=== PATIENT | female | born 1950 | race Caucasian/White ===

== ENCOUNTER 2017-05-23 12:45 | Emergency (ER) | payer MEDICARE ==
[~2017-05-23] VITALS: Ht 157.5 cm; Wt 47.0 kg
[~2017-05-23 12:45] MED LIST: ACLI1AER2 IN; SYMB160A INH
[2017-05-23 12:46] VITALS: BP 142/73; PULSE 91; RESP 18; TEMP 97.6; O2SAT 95
[2017-05-23] MEDS ORDERED: SODIUM CHLOR 0.9% 1000 ML INJ 1,000 ML IV ONE (14:00)
[2017-05-23 14:29] LABS: AUTOMATED NEUTROPHIL # 5.3 TH/MM3 (1.8-7.7); BASOPHIL % 0.5 % (0.0-2.0); EOSINOPHIL # 0.1 TH/MM3 (0-0.4); EOSINOPHIL % 0.9 % (0.0-4.0); HEMO FLAGS DIFF FINAL; LYMPH % 19.5 % (9.0-44.0); LYMPHOCYTE # 1.4 TH/MM3 (1.0-4.8); MEAN CELL VOLUME 92.6 FL (80.0-100.0); MEAN CORPUSCULAR HEMOGLOBIN 31.8 PG (27.0-34.0); MEAN CORPUSCULAR HGB CONC 34.3 % (32.0-36.0); MONO % 8.1 % (0.0-8.0); PLATELET COUNT 292 TH/MM3 (150-450); RED BLOOD COUNT 4.21 MIL/MM3 (4.00-5.30); RED CELL DISTRIBUTION WIDTH 13.2 % (11.6-17.2); WHITE BLOOD COUNT 7.4 TH/MM3 (4.0-11.0)
[2017-05-23 14:45] LABS: ALT (GPT) 12 U/L (10-53); ANION GAP 4 MEQ/L (5-15); AST (GOT) 6 U/L (15-37); BICARBONATE 30.6 MEQ/L (21.0-32.0); BLOOD UREA NITROGEN 14 MG/DL (7-18); CHLORIDE 108 MEQ/L (98-107); GLOMERULAR FILTRATION RATE 72 ML/MIN (>89); POTASSIUM 3.9 MEQ/L (3.5-5.1); SODIUM (NA) 143 MEQ/L (136-145)
[2017-05-23 14:46] LABS: ALKALINE PHOSPHATASE 66 U/L (45-117); TOTAL BILIRUBIN ADULT 0.3 MG/DL (0.2-1.0)
[2017-05-23] MEDS ORDERED: AZIT250T3 PO (14:57)
[2017-05-23] MEDS ORDERED: PRED20 PO (14:57)
--- NOTE | 2017-05-23 14:57 | PD ---
HPI Chief Complaint: Cold / Flu Symptoms Time Seen by Provider: 13:49 Travel History International Travel<30 days: No Contact w/Intl Traveler<30days: No Traveled to known affect area: No History of Present Illness HPI This is a 67-year-old female who presents to the emergency department with cold symptoms that have been going on for 10 days, constant, moderate severity associated with generalized malaise, productive cough with some clear sputum and loose stools. She denies any fevers. She does have a history of COPD for which she uses albuterol. PFSH Past Medical History High Cholesterol: Yes COPD: Yes Respiratory: Yes Past Surgical History Hysterectomy: Yes Tonsillectomy: Yes Social History Alcohol Use: Yes (OCC) Tobacco Use: Yes (06/24 PPD) Substance Use: No Allergies-Medications (Allergen,Severity, Reaction): Coded Allergies: No Known Allergies (Unverified Adverse Reaction, Unknown, 05/23/17) Reported Meds & Prescriptions Reported Meds & Active Scripts Active Reported Symbicort (Budesonide/Formoterol Fumarate) 160 Mcg/4.5 Mcg Aer 1 Puff INH BID * SHAKE WELL BEFORE USE * Tudorza Pressair (Aclidinium [place]) 400 Mg/Act Aer 400 Mg IN BID Review of Systems Except as stated in HPI: all other systems reviewed are Neg Physical Exam Narrative GENERAL:Well appearing, no acute distress SKIN: Focused skin assessment warm and dry. HEAD: Atraumatic. Normocephalic. EYES: Pupils equal and round. No injection or drainage. ENT: Dry mucous membranes NECK: Trachea midline. CARDIOVASCULAR: Regular rate and rhythm. No murmur appreciated. RESPIRATORY: Poor air movement, no focal Rales or rhonchi GASTROINTESTINAL: Abdomen soft, non-tender, nondistended. MUSCULOSKELETAL: No obvious deformities. NEUROLOGICAL: Awake and alert. No obvious cranial nerve deficits. Moving all extremities. PSYCHIATRIC: Appropriate mood and affect; insight and judgment normal. Data Data Last Documented VS Vital Signs Date Time Temp Pulse Resp B/P (MAP) Pulse Ox O2 Delivery O2 Flow Rate FiO2 05/23/17 13:52 63 16 96 Room Air 05/23/17 12:46 97.6 142/73 (96) Orders Orders Complete Blood Count With Diff (05/23/17 13:56) Comprehensive Metabolic Panel (05/23/17 13:56) ^ Insert Iv (05/23/17 13:56) Sodium Chlor 0.9% 1000 Ml Inj (Ns 1000 M (05/23/17 14:00) Labs Laboratory Tests Test 05/23/17 14:05 White Blood Count 7.4 TH/MM3 Red Blood Count 4.21 MIL/MM3 Hemoglobin 13.4 GM/DL Hematocrit 39.0 % Mean Corpuscular Volume 92.6 FL Mean Corpuscular Hemoglobin 31.8 PG Mean Corpuscular Hemoglobin Concent 34.3 % Red Cell Distribution Width 13.2 % Platelet Count 292 TH/MM3 Mean Platelet Volume 7.8 FL Neutrophils (%) (Auto) 71.0 % Lymphocytes (%) (Auto) 19.5 % Monocytes (%) (Auto) 8.1 % Eosinophils (%) (Auto) 0.9 % Basophils (%) (Auto) 0.5 % Neutrophils # (Auto) 5.3 TH/MM3 Lymphocytes # (Auto) 1.4 TH/MM3 Monocytes # (Auto) 0.6 TH/MM3 Eosinophils # (Auto) 0.1 TH/MM3 Basophils # (Auto) 0.0 TH/MM3 CBC Comment DIFF FINAL Differential Comment Blood Urea Nitrogen 14 MG/DL Creatinine 0.79 MG/DL Random Glucose 106 MG/DL Total Protein 6.9 GM/DL Albumin 3.4 GM/DL Calcium Level 8.7 MG/DL Alkaline Phosphatase 66 U/L Aspartate Amino Transf (AST/SGOT) 6 U/L Alanine Aminotransferase (ALT/SGPT) 12 U/L Total Bilirubin 0.3 MG/DL Sodium Level 143 MEQ/L Potassium Level 3.9 MEQ/L Chloride Level 108 MEQ/L Carbon Dioxide Level 30.6 MEQ/L Anion Gap 4 MEQ/L Estimat Glomerular Filtration Rate 72 ML/MIN [facility] Medical Decision Making Medical Screen Exam Complete: Yes Emergency Medical Condition: Yes Differential Diagnosis Viral syndrome, pneumonia, bronchitis, dehydration, electrolyte abnormality Narrative Course This is a 67-year-old female who presents to the emergency department with cough and cold symptoms that have been going on for 10 days. She feels like she is just not getting any better and she feels very malaise. Labs are obtained which are reassuring and she was given a liter of IV hydration. I suspect she has a viral syndrome. Given her underlying history of COPD I think it's reasonable to start her on prednisone and azithromycin. Electrolytes are reassuring. I think patient is safe to be discharged given her reassuring vital signs. Diagnosis Primary Impression: Bronchitis Patient Instructions: General Instructions Additional Instructions: If you develop severe shortness of breath, chest pain, or difficulty breathing return to the emergency department. Use albuterol every 4 hours for the next 2 days. Then use as needed for wheezing. Complete your course of steroids. Complete your course of antibiotics. Follow up with your primary care physician in 2-3 days if your symptoms have not improved. Med/Other Pt SpecificInfo: Prescription(s) given Scripts Azithromycin (Azithromycin) 250 Mg Tab 250 MG PO DIRECTED for Infection, #6 TAB 0 Refills Take 2 tabs (500 mg) on day 1 then 1 tab daily x 4 days. Prov: Sheryl Garcia MD 05/23/17 Prednisone (Prednisone) 20 Mg Tab 40 MG PO DAILY, #10 TAB 0 Refills Take 40 mg (2 tablets) daily for 5 days Prov: Sheryl Garcia MD 05/23/17 Disposition: 01 DISCHARGE HOME Condition: Stable Sheryl Garcia MD May 23, 2017 14:57
== END 2017-05-23 15:41 | disposition home or self-care (01) ==
LOC: NEPC 12:45
DX: J40 Bronchitis, not specified as acute or chronic (principal); J44.9 Chronic obstructive pulmonary disease, unspecified; E78.00 Pure hypercholesterolemia, unspecified; F17.200 Nicotine dependence, unspecified, uncomplicated; Z79.899 Other long term (current) drug therapy
CPT/HCPCS: 80053; 85025; 99284; J7030

== ENCOUNTER 2017-07-08 14:51 | Emergency (ER) | payer MEDICAID, MEDICARE ==
[~2017-07-08] VITALS: Ht 157.5 cm; Wt 47.7 kg
[~2017-07-08 14:51] MED LIST changes: +AZIT250T3 PO; +PRED20 PO
[2017-07-08 14:57] VITALS: BP 178/78; PULSE 69; RESP 18; TEMP 98.6; O2SAT 97
[2017-07-08] MEDS ORDERED: ACETAMINOPHEN/HYDROcodone 325 MG/5 MG TAB PO ONE (15:45)
[2017-07-08] MEDS ORDERED: LIDOCAINE HCL 1% 30 ML VIAL INFIL ONE (15:45)
[2017-07-08] MEDS ORDERED: GELATIN 12 MM/7 MM FOAM TOPICAL ONE (16:00)
[2017-07-08] MEDS ORDERED: LIDOCAINE HCL 1% PF 30 ML VIAL INFIL ONE (16:00)
--- NOTE | 2017-07-08 16:05 | RADRPT ---
EXAM DATE/TIME: 07/08/2017 15:51 [place] COMPARISON: No previous studies available for comparison. INDICATIONS : Right 3rd finger pain and laceration, iguana bite MEDICAL HISTORY : None. SURGICAL HISTORY : Hysterectomy. ENCOUNTER: Initial ACUITY: 1 day PAIN SCORE: 10/10 LOCATION: Right 3rd finger FINDINGS: The examination demonstrates a large soft tissue defect involving the distal aspect of the third digi t. There is no bony abnormality. There is no retained foreign body. CONCLUSION: 1. Sizable soft tissue defect. No retained foreign body. No acute bony injury. Santy Pike MD on July 08, 2017 at 15:59 Board Certified Radiologist. This report was verified electronically.
[2017-07-08] MEDS ORDERED: AUGM875T3 PO (16:32)
[2017-07-08] MEDS ORDERED: IBUP1TAB7 PO (16:32)
[2017-07-08] MEDS ORDERED: NORC5TAB PO (16:32)
--- NOTE | 2017-07-08 16:34 | PD ---
HPI Chief Complaint: Bite or Sting Time Seen by Provider: 15:33 Travel History International Travel<30 days: No Contact w/Intl Traveler<30days: No Traveled to known affect area: No History of Present Illness HPI 67-year-old female presents to the emergency Department with complaint of her Iguana biting the tip of her right third finger off today. Up-to-date on tetanus vaccination. Denies paresthesias, loss of sensation, decreased range of motion, decreased strength to the affected finger. Has not taken any medication to alleviate her symptoms. Denies anticoagulant therapy. Has applied pressure to control bleeding. Rates pain /10. Describes it as a throbbing sensation. History of hypercholesterolemia. Has an established primary care provider. No known allergies. Has no other medical complaints. No other modifying factors or associated signs and symptoms. PFSH Past Medical History High Cholesterol: Yes COPD: Yes Respiratory: Yes Past Surgical History Hysterectomy: Yes Tonsillectomy: Yes Social History Alcohol Use: Yes (OCC) Tobacco Use: Yes (06/24 PPD) Substance Use: No Allergies-Medications (Allergen,Severity, Reaction): Coded Allergies: No Known Allergies (Unverified Adverse Reaction, Unknown, 05/23/17) Reported Meds & Prescriptions Reported Meds & Active Scripts Active Bactrim DS (Sulfamethoxazole-Trimethoprim) 800-160 Mg Tab 1 Tab PO BID 10 Days Augmentin (Amoxicillin-Clavulanate) 875-125 Mg Tab 1 Tab PO BID 14 Days Ibuprofen 800 Mg Tab 800 Mg PO Q8H PRN [place] (Hydrocodone-Acetaminophen) 5 Mg-325 Mg Tab 1 Tab PO Q4H PRN Azithromycin 250 Mg Tab 250 Mg PO DIRECTED Take 2 tabs (500 mg) on day 1 then 1 tab daily x 4 days. Prednisone 20 Mg Tab 40 Mg PO DAILY Take 40 mg (2 tablets) daily for 5 days Reported Symbicort (Budesonide/Formoterol Fumarate) 160 Mcg/4.5 Mcg Aer 1 Puff INH BID * SHAKE WELL BEFORE USE * Tudorza Pressair (Aclidinium [place]) 400 Mg/Act Aer 400 Mg IN BID Review of Systems Except as stated in HPI: all other systems reviewed are Neg Physical Exam Narrative GENERAL: Well-nourished, well-developed female patient, in no acute distress SKIN: Warm and dry. Distal aspect of right third finger with skin avulsion; minimal amount of bright red drainage; bleeding controlled; sensory intact; fingers with full range of motion and good opposition; without erythema, edema, ecchymosis. HEAD: Atraumatic. Normocephalic. EYES: Pupils equal and round. No scleral icterus. No injection or drainage. ENT: Mucosa pink and moist. Airway patent. NECK: Trachea midline. CARDIOVASCULAR: Regular rate. RESPIRATORY: No accessory muscle use. GASTROINTESTINAL: Flat. MUSCULOSKELETAL: No obvious deformities. No clubbing. No cyanosis. No edema. NEUROLOGICAL: Awake and alert. Oriented 3. No obvious cranial nerve deficits. Motor grossly within normal limits. Normal speech. PSYCHIATRIC: Appropriate mood and affect; insight and judgment normal. Data Data Last Documented VS Vital Signs Date Time Temp Pulse Resp B/P (MAP) Pulse Ox O2 Delivery O2 Flow Rate FiO2 07/08/17 14:57 98.6 69 18 178/78 (111) 97 Room Air Orders Orders Finger ([id number]) (07/08/17 ) Acetamin-Hydrocod 325-5 Mg ([place] 5-325 (07/08/17 15:45) Lidocaine 1% Inj (Xylocaine 1% Inj) (07/08/17 15:45) Lidocaine Pf 1% Inj (Xylocaine-Mpf 1% In (07/08/17 16:00) Gelatin 12 Mm/7 Mm Top (Gelfoam 12 Mm/7 (07/08/17 16:00) Amoxicil-Clavulanate (Augmentin) (07/08/17 16:45) Splint Or Brace Apply/Monitor (07/08/17 16:34) Ed Discharge Order (07/08/17 16:53) Sulfamet-Trimeth Ds 800-160 Mg (Bactrim (07/08/17 17:00) Finger Splint (07/08/17 ) MDM Medical Decision Making Medical Screen Exam Complete: Yes Emergency Medical Condition: Yes Medical Record Reviewed: Yes Differential Diagnosis Skin avulsion, amputation, laceration, reptile bite Narrative Course 67-year-old female that was bit by her Iguana leaving a skin avulsion to the distal aspect of the right third finger with nailbed involvement. Patient up-to -date on tetanus vaccination. Right third finger x-ray ordered. [place] and Augmentin ordered. See my procedure note for skin avulsion repair. 1629: Right hand third finger x-ray concludes: Finger X-Ray 07/08/17 0000 Signed Impressions: Service Date/Time: June 15:51 - CONCLUSION: 1. Sizable soft tissue defect. No retained foreign body. No acute bony injury. Santy Pike MD X-ray findings discussed with the patient. [place], Augmentin, Bactrim, ibuprofen prescribed for home. Instructed patient to follow up with hand surgeon; patient is currently seeing a hand surgeon secondary to a previous bite from her iguana to her right fifth finger and she has a scheduled appointment in 2 weeks. Instructed patient to call and make an earlier appointment. Instructed patient to follow up with primary care provider. Patient verbalizes understanding and agreement with treatment plan. Patient is medically cleared and stable for discharge. Discussed reasons to return to the emergency department. Patient agrees with treatment plan. The patients vital signs are stable and the patient is stable for outpatient follow-up and treatment. Patient discharged home, stable and in no acute distress. Procedures Procedure Narrative REPAIR of skin avulsion: The right third finger was digitally blocked with 1% lidocaine. The area of the laceration was prepped with Betadine and sterilely draped. The wound was copiously irrigated and explored without evidence of foreign body, tendon injury or neurovascular injury. The wound was closed using a cautery pen and gel hemostatic. A sterile dressing was applied. The patient was advised to keep the dressing clean and dry. Patient tolerated the procedure well. Diagnosis Primary Impression: Reptile bite Qualified Codes: W59.81XA - Bitten by other nonvenomous reptiles, initial encounter Additional Impression: Avulsion of skin of finger Qualified Codes: S61.209A - Unspecified open wound of unspecified finger without damage to nail, initial encounter Referrals: Hand Surgeon Primary Care Physician Patient Instructions: Acute Wound Care (DC), Animal Bite (ED), General Instructions, Skin Avulsion (ED) Additional Instructions: Do not change the dressing for 48 hours After 48 hours keep the area clean and dry Apply triple antibiotic ointment as directed and as needed for wound care Keep area covered with bandage Finger splint as needed for support Ibuprofen or Tylenol as directed and as needed for pain and inflammation Ice to affected area to help decrease pain and inflammation Follow-up with hand surgeon Follow-up with primary care provider Return to the emergency department immediately if worsening of symptoms Med/Other Pt SpecificInfo: Prescription(s) given Scripts Sulfamethoxazole-Trimethoprim (Bactrim DS) 800-160 Mg Tab 1 TAB PO BID for Infection for 10 Days, #20 TAB 0 Refills Prov: Shasha Massey 07/08/17 Amoxicillin-Clavulanate (Augmentin) 875-125 Mg Tab 1 TAB PO BID for Infection for 14 Days, #28 TAB 0 Refills Prov: Shasha Massey 07/08/17 Ibuprofen (Ibuprofen) 800 Mg Tab 800 MG PO Q8H Y for PAIN SCALE 1 TO 10, #30 TAB 0 Refills Prov: Shasha Massey 07/08/17 Hydrocodone-Acetaminophen ([place]) 5 Mg-325 Mg Tab 1 TAB PO Q4H Y for PAIN, #18 TAB 0 Refills Prov: Shasha Massey 07/08/17 Disposition: 01 DISCHARGE HOME Condition: Stable Shasha Massey Jul 08, 2017 16:34
[2017-07-08] MEDS ORDERED: AMOXICILLIN/CLAVULANATE K 875 MG TAB PO ONE (16:45)
[2017-07-08] MEDS ORDERED: BACT800T5 PO (16:56)
[2017-07-08] MEDS ORDERED: SULFAMETHOXAZOLE-TRIMETHOPRIM DS 800-160 MG TAB PO ONE (17:00)
[2017-07-08 17:19] VITALS: RESP 20
== END 2017-07-08 17:19 | disposition home or self-care (01) ==
LOC: NEPK 14:51
DX: S61.252A Open bite of right middle finger without damage to nail, initial encounter (principal); W59.01XA Bitten by nonvenomous lizards, initial encounter
CPT/HCPCS: 12001; 64450; 73140